=== PATIENT | female | born 1955 | race Caucasian/White ===

== ENCOUNTER 2022-11-18 09:04 | Emergency (ER) | payer OTHER ==
--- OUTSIDE RECORDS SUMMARY | 2022-11-18 09:09 | XMS REPORT | Continuity of Care Document ---
:1955 Author Organization [facility] t Address [address] [address] [place] [address] Care Team Providers Name Role Phone Pa Linares MD Primary Care Physician SUSAN CHAMBERS Attending Clinician Unavailable MONTEZ BURGER Attending Clinician Unavailable TITO DOE Attending Clinician Unavailable DARLINE PADRON Attending Clinician Unavailable PA LINARES Attending Clinician Unavailable RAFAT ORTIZ Attending Clinician Unavailable KELI WYATT Attending Clinician Unavailable JAYNE LOVE Attending Clinician Unavailable Kemal Hassan DO Attending Clinician HUMAIRA RAMSEY Attending Clinician Unavailable Gisselle Guerra MD Attending Clinician Chery Santa MD Attending Clinician [id number] Attending Clinician Unavailable Humaira Ramsey MD Attending Clinician [phone] [id number] Attending Clinician Unavailable Darline Padron MD Attending Clinician Sun Arana MD Attending Clinician SAMIR AVILA Attending Clinician Unavailable JEFF SANTIAGO Attending Clinician Unavailable Nurse, Adc Pob Immunization Attending Clinician Unavailable Jeff Santiago DO Attending Clinician [id number] Attending Clinician Unavailable Ric Gracia MD Attending Clinician RIC GRACIA Attending Clinician Unavailable Payers Payer Name Policy Type Policy Number Effective Date Expiration Date Dorothy MENDOZA O 7 [id number] 2020 00:00:00 Problems Condition Condition Condition Status Onset Resolution Last Treating Co mments Source Name Details Category Date Date Treatment Clinician Date Hyperchole Hyperchole Disease Active Wale cornelius sterolemia sterolemia 5-23 Se ybold 00:00: - 00 Externa l Osteoporos Osteoporos Disease Active Wale shields is is 4-09 Seybold 00:00: - 00 Externa l Non-allerg Non-allerg Disease Active Wale galdamezkeshia ic ic 3-27 Seybold rhinitis rhinitis 00:00: - 00 Externa l Moderate Moderate Disease Active Dillon y persistent persistent 3-27 Se ybold asthma asthma 00:00: - without without 00 Externa complicati complicati l on on Nasal Nasal Disease Active Octavia polyp polyp 3-27 Seybold 00:00: - 00 Externa l Allergies, Adverse Reactions, Alerts Allergy Allergy Status Severity Reaction(s) Onset Inactive Treating Comm ents Source Name Type Date Date Clinician Penicill Propensi Active Other - See 2019-07 Childhoo d [facility] ins ty to comments 07-22 allergy ity of adverse 00:00: [place] reaction 00 Medical s Branch PENICILL Drug Active Other-Cmnt 2019-07 Univ ers INS Class 1- ity of 00:00: [place] 00 Medical Branch Penicill Propensi Active Childhood 2013-07 . Idris sey ins ty to Reaction 0-02 Seybold adverse 00:00: - reaction 00 Externa s l Penicill Propensi Active Childhood 2013-07 . Idris sey ins ty to Reaction 0-02 Seybold adverse 00:00: reaction 00 s NO KNOWN Drug Active Univers ALLERGIE Class ity of S [facility] Social History Social Habit Start Date Stop Date Quantity Comments Source Exposure to Not sure Octavia ortega SARS-CoV-2 (event) Alcohol intake 2022-07-29 2022-07-29 Current Octavia Khan bold - 00:00:00 00:00:00 non-drinker of External alcohol (finding) Tobacco use and 2017-05-30 2017-05-30 Smokeless tobacco Ke lsey Seybold - exposure 00:00:00 00:00:00 non-user External Sex [birth year] [facility] 00:00:00 00:00:00 [facility] Smoking Status Start Date Stop Date Source Never smoked tobacco Octavia Rendon old - External Medications Ordered Filled Start Stop Current Ordering Indication Dosage Frequency Signature Comments Components Source Medication Medication Date Date Medication? Clinician (SIG) Name Name Probiotic Yes Take by Dillon y Product 1-16 mouth Seybold (PROBIOTIC 08:21: - OR) 28 Externa l Calcium 250 Yes 2{tbl} Take 2 Ke lsey MG oral Cap 1-16 tablets by Se ybold 08:15: mouth - 17 daily Externa l Ascorbic Yes 2{tbl} Take 2 Kelse y Acid 1-16 tablets by Seybold (VITAMIN C 08:15: mouth - OR) 17 daily Externa l Multiple Yes 1{tbl} Take 1 Kelse y Vitamins-Mi 1-16 tablet by Erin bold nerals 08:15: mouth - (MULTIVITAM 17 daily Externa IN ADULT l OR) Pearson-3 Yes Take by Octavia Fatty Acids 1-16 mouth Seybold (OMEGA-3 08:15: - FISH OIL 17 Externa OR) l Zinc 30 MG Yes Take by Cecilia ey oral 1-16 mouth Seybold Capsule 08:15: - 17 Externa l Budesonide- Yes [id number] 2{puff} Inhale 2 Octavia Formoterol 1-16 puffs into Erin bold Fumarate 00:00: the lungs - (Symbicort) 00 2 times Exter na 80-4.5 daily l MCG/ACT inhalation Aerosol Calcium 250 Yes 2{tbl} Take 2 Ke lsey MG oral Cap 1-12 tablets by Se ybold 10:57: mouth - 55 daily Externa l Ascorbic 0 Yes 2{tbl} Take 2 Kelse y Acid 1-12 tablets by Seybold (VITAMIN C 10:57: mouth - OR) 55 daily Externa l Multiple Yes 1{tbl} Take 1 Kelse y Vitamins-Mi 1-12 tablet by Erin bold nerals 10:57: mouth - (MULTIVITAM 55 daily Externa IN ADULT l OR) Pearson-3 Yes Take by Octavia Fatty Acids 1-12 mouth Seybold (OMEGA-3 10:57: - FISH OIL 55 Externa OR) l Zinc 30 MG Yes Take by Cecilia ey oral 1-12 mouth Seybold Capsule 10:57: - 55 Externa l predniSONE Yes 3 daily Cecilia ey (DELTASONE) 1-12 for 4 Seybold 10 MG oral 00:00: days, 2 - tablet 00 daily for Externa 4 days, 1 l daily for 4 days Clindamycin Yes 300mg Take 1 Idris sey HCl 300 MG 1-12 capsule Seybol d oral 00:00: (300 mg - Capsule 00 total) by Externa mouth 3 l times daily predniSONE Yes 3 daily Cecilia ey (DELTASONE) 1-12 for 4 Seybold 10 MG oral 00:00: days, 2 - tablet 00 daily for Externa 4 days, 1 l daily for 4 days Clindamycin Yes 300mg Take 1 Idris sey HCl 300 MG 1-12 capsule Seybol d oral 00:00: (300 mg - Capsule 00 total) by Externa mouth 3 l times daily ALBUTEROL 2021-07 Yes [id number] 2{puff} Q.25D INHALE 2 Octavia HFA 108 (90 2-31 PUFFS INTO Se ybold Base) 00:00: THE LUNGS - MCG/ACT IN 00 EVERY 6 Meat Packager a AERS HOURS l NEEDED FOR WHEEZING OR SHORTNESS OF BREATH ALBUTEROL 2021-07 Yes [id number] 2{puff} Q.25D INHALE 2 Octavia HFA 108 (90 2-31 PUFFS INTO Se ybold Base) 00:00: THE LUNGS - MCG/ACT IN 00 EVERY 6 Meat Packager a AERS HOURS l NEEDED FOR WHEEZING OR SHORTNESS OF BREATH Azelastine 2021-07 Yes [id number] 2{spray USE 2 Octavia HCl 0.1 % 08-11 1 } SPRAYS IN Seybo ld nasal 00:00: EACH - Solution 00 NOSTRIL AT Exter na BEDTIME l Azelastine 2021-07 Yes [id number] 2{spray USE 2 Octavia HCl 0.1 % 08-11 } SPRAYS IN Seybo ld nasal 00:00: EACH - Solution 00 NOSTRIL AT Exter na BEDTIME l Alendronate Yes [id number] 70mg Take 1 Octavia Sodium 70 8-18 tablet (70 Seyb old MG oral 00:00: mg total) - Tablet 00 by mouth Externa once a l week Meclizine Yes [id number] 25mg Q.[id number] Take 1 Octavia HCl 25 MG 8-18 [id number] tablet (25 Seybold oral Tablet 00:00: 3D mg total) - 00 by mouth Externa every 8 l hours as needed for nausea (motion sickness) Alendronate Yes [id number] 70mg Take 1 Octavia Sodium 70 8-18 tablet (70 Seyb old MG oral 00:00: mg total) - Tablet 00 by mouth Externa once a l week Meclizine Yes [id number] 25mg Q.[id number] Take 1 Octavia HCl 25 MG 8-18 [id number] tablet (25 Seybold oral Tablet 00:00: 3D mg total) - 00 by mouth Externa every 8 l hours as needed for nausea (motion sickness) Dextrometho 2022- No [id number] 1{tbl} Take 1 Octavia rphan-guaiF 7-07 14-12 tablet by Se burgos ENesin 00:00: 00:00 mouth 2 - (Mucinex DM 00 :00 times Externa Maximum daily l Strength) 60-1200 MG oral Tablet 12 Hour Sustained Release Calcium 250 Yes 2{tbl} Take 2 Ke lsey MG oral Cap 5-23 tablets by Se burgos 15:50: mouth 52 daily Ascorbic Yes 2{tbl} Take 2 Kelse y Acid 5-23 tablets by Elliott (VITAMIN C 15:50: mouth OR) 52 daily Multiple Yes 1{tbl} Take 1 Kelse y Vitamins-Mi 5-23 tablet by Erin burnett nerals 15:50: mouth (MULTIVITAM 52 daily IN ADULT OR) Pearson-3 Yes Take by Octavia Fatty Acids 5-23 mouth Seybold (OMEGA-3 15:50: FISH OIL 52 OR) Multiple 2021-2021- No Take by Kelse y Vitamins-Mi 5-23 05-23 mouth Seybol d nerals 15:50: 00:00 (ZINC OR) 36 :00 Azelastine Yes [id number] 2{spray Use 2 Octavia HCl 0.1 % 12-03 1 } sprays in Seybo ld nasal 00:00: each Solution 00 nostril at bedtime Calcium 250 Yes 2{tbl} Take 2 Ke lsey MG oral Cap 5-06 tablets by Se ybold 10:56: mouth 24 daily Ascorbic Yes 2{tbl} Take 2 Kelse y Acid 5-06 tablets by Seybold (VITAMIN C 10:56: mouth OR) 24 daily Multiple Yes 1{tbl} Take 1 Kelse y Vitamins-Mi 5-06 tablet by Sey bold nerals 10:56: mouth (MULTIVITAM 24 daily IN ADULT OR) Multiple Yes Take by Octavia Vitamins-Mi 5-06 mouth Seybold nerals 10:56: (ZINC OR) 24 Pearson-3 Yes Take by Octavia Fatty Acids 5-06 mouth Seybold (OMEGA-3 10:56: FISH OIL 24 OR) Calcium 250 Yes 2{tbl} Take 2 Ke lsey MG oral Cap 4-22 tablets by Se ybold 10:47: mouth 57 daily Ascorbic Yes 2{tbl} Take 2 Kelse y Acid 4-22 tablets by Seybold (VITAMIN C 10:47: mouth OR) 57 daily Multiple Yes 1{tbl} Take 1 Kelse y Vitamins-Mi 4-22 tablet by Sey bold nerals 10:47: mouth (MULTIVITAM 57 daily IN ADULT OR) Multiple Yes Take by Octavia Vitamins-Mi 4-22 mouth Seybold nerals 10:47: (ZINC OR) 57 Pearson-3 Yes Take by Octavia Fatty Acids 4-22 mouth Seybold (OMEGA-3 10:47: FISH OIL 57 OR) Budesonide- Yes [id number] 2{puff} Inhale 2 Octavia Formoterol 1-25 puffs into Sey bold Fumarate 00:00: the lungs (Symbicort) 00 2 times 80-4.5 daily MCG/ACT inhalation Aerosol Budesonide- 2-0 Yes [id number] 2{puff} Inhale 2 Octavia Formoterol 1-25 puffs into Sey bold Fumarate 00:00: the lungs (Symbicort) 00 2 times 80-4.5 daily MCG/ACT inhalation Aerosol Budesonide- 2021-0 Yes [id number] 2{puff} Inhale 2 Octavia Formoterol 1-25 puffs into Sey bold Fumarate 00:00: the lungs (Symbicort) 00 2 times 80-4.5 daily MCG/ACT inhalation Aerosol Budesonide- 2021-0 Yes [id number] 2{puff} Inhale 2 Octavia Formoterol 1-25 puffs into Sey bold Fumarate 00:00: the lungs - (Symbicort) 00 2 times Exter na 80-4.5 daily l MCG/ACT inhalation Aerosol Budesonide- 2021-0 3- No [id number] 2{puff} Inhale 2 Octavia Formoterol 1-25 01-16 puffs into Se ybold Fumarate 00:00: 00:00 the lungs - (Symbicort) 00 :00 2 times Exter na 80-4.5 daily l MCG/ACT inhalation Aerosol guaiFENesin 2021-0 Yes [id number] 5mL Q.[id number] Take 5 mL Octavia -Codeine 1-24 [id number] by mouth 3 Seybold (Virtussin 00:00: 3D times A/C) 100-10 00 daily as MG/5ML oral needed for Syrup cough (not to mix with any other potentiall y sedating substance) guaiFENesin 2021-0 Yes [id number] 5mL Q.81611032 Take 5 mL Octavia -Codeine 1-24 [id number] by mouth 3 Seybold (Virtussin 00:00: 3D times A/C) 100-10 00 daily as MG/5ML oral needed for Syrup cough (not to mix with any other potentiall y sedating substance) guaiFENesin 2021-0 Yes [id number] 5mL Q.[id number] Take 5 mL Octavia -Codeine -24 [id number] by mouth 3 Seybold (Virtussin 00:00: 3D times A/C) 100-10 00 daily as MG/5ML oral needed for Syrup cough (not to mix with any other potentiall y sedating substance) guaiFENesin 2021- No [id number] 5mL Q.06644992 Take 5 mL Octavia -Codeine 08-06 [id number] by mouth 3 Seybold (Virtussin 00:00: 00:00 3D times A/C) 100-10 00 :00 daily as MG/5ML oral needed for Syrup cough (not to mix with any other potentiall y sedating substance) Azithromyci 2021- No [id number] Take 2 Octavia n 250 MG 08-06-30 tablets by Seyb old oral Tablet 00:00: 05:59 mouth on 00 :00 day 1 then 1 tablet by mouth daily for 4 days thereafter . Calcium 250 2020-07 Yes 2{tbl} Take 2 Ke lsey MG oral Cap 2-16 tablets by Se ybold 12:53: mouth 48 daily Ascorbic 2020-07 Yes 2{tbl} Take 2 Kelse y Acid 2-16 tablets by Seybold (VITAMIN C 12:53: mouth OR) 48 daily Multiple 2020-07 Yes 1{tbl} Take 1 Kelse y Vitamins-Mi 2-16 tablet by Sey bold nerals 12:53: mouth (MULTIVITAM 48 daily IN ADULT OR) Multiple 2020-07 Yes Take by Octavia Vitamins-Mi 2-16 mouth Seybold nerals 12:53: (ZINC OR) 48 Calcium 250 2020-07 Yes 2{tbl} Take 2 Ke lsey MG oral Cap 2-16 tablets by Se ybold 12:53: mouth 48 daily Ascorbic 2020-07 Yes 2{tbl} Take 2 Kelse y Acid 2-16 tablets by Seybold (VITAMIN C 12:53: mouth OR) 48 daily Multiple 2020-07 Yes 1{tbl} Take 1 Kelse y Vitamins-Mi 2-16 tablet by Sey bold nerals 12:53: mouth (MULTIVITAM 48 daily IN ADULT OR) Multiple 2020-07 Yes Take by Octavia Vitamins-Mi 2-16 mouth Seybold nerals 12:53: (ZINC OR) 48 Azelastine 2020-07 Yes USE 2 Octavia HCl 0.1 % 2-02 SPRAYS IN Seybo ld nasal 00:00: EACH Solution 00 NOSTRIL EVERY NIGHT AT BEDTIME Azelastine 2020-07 Yes USE 2 Octavia HCl 0.1 % 2-02 SPRAYS IN Seybo ld nasal 00:00: EACH Solution 00 NOSTRIL EVERY NIGHT AT BEDTIME Azelastine 2020-07 Yes USE 2 Octavia HCl 0.1 % 2-02 SPRAYS IN Seybo ld nasal 00:00: EACH Solution 00 NOSTRIL EVERY NIGHT AT BEDTIME Azelastine 2020-07 Yes USE 2 Octavia HCl 0.1 % 2-02 SPRAYS IN Seybo ld nasal 00:00: EACH Solution 00 NOSTRIL EVERY NIGHT AT BEDTIME Azelastine 2020-07- No USE 2 Kelse y HCl 0.1 % 2-02 05-23 SPRAYS IN Seyb old nasal 00:00: 00:00 EACH Solution 00 :00 NOSTRIL EVERY NIGHT AT BEDTIME Alendronate 2020-07 Yes [id number] 70mg Take 1 Octavia Sodium 70 1-12 tablet (70 Seyb old MG oral 00:00: mg total) Tablet 00 by mouth once a week Albuterol 2020-07 Yes [id number] 2{puff} Q.25D Inhale 2 Octavia HFA 1-12 puffs into Seybold (VENTOLIN 00:00: the lungs HFA) 108 00 every 6 (90 Base) hours as MCG/ACT IN needed for AERS wheezing or shortness of breath Alendronate 2020-07 Yes [id number] 70mg Take 1 Octavia Sodium 70 1-12 tablet (70 Seyb old MG oral 00:00: mg total) Tablet 00 by mouth once a week Albuterol 2020-07 Yes [id number] 2{puff} Q.25D Inhale 2 Octavia HFA 1-12 puffs into Seybold (VENTOLIN 00:00: the lungs HFA) 108 00 every 6 (90 Base) hours as MCG/ACT IN needed for AERS wheezing or shortness of breath Alendronate 2020-07 Yes [id number] 70mg Take 1 Octavia Sodium 70 1-12 tablet (70 Seyb old MG oral 00:00: mg total) Tablet 00 by mouth once a week Albuterol 2020-07 Yes [id number] 2{puff} Q6H Inhale 2 Octavia HFA 1-12 puffs into Seybold (VENTOLIN 00:00: the lungs HFA) 108 00 every 6 (90 Base) hours as MCG/ACT IN needed for AERS wheezing or shortness of breath Fluticasone 2020-07 Yes [id number] 1{puff} Inhale 1 Octavia -Salmeterol 1-12 puff into Sey bold (Advair 00:00: the lungs Diskus) 00 2 times 250-50 daily MCG/DOSE inhalation AEROSOL POWDER, BREATH ACTIVATED Alendronate 2020-07 Yes [id number] 70mg Take 1 Octavia Sodium 70 1-12 tablet (70 Seyb old MG oral 00:00: mg total) Tablet 00 by mouth once a week Albuterol 2020-07 Yes [id number] 2{puff} Q6H Inhale 2 Octavia HFA 1-12 puffs into Seybold (VENTOLIN 00:00: the lungs HFA) 108 00 every 6 (90 Base) hours as MCG/ACT IN needed for AERS wheezing or shortness of breath Fluticasone 2020-07 Yes [id number] 1{puff} Inhale 1 Octavia -Salmeterol 1-12 puff into Sey bold (Advair 00:00: the lungs Diskus) 00 2 times 250-50 daily MCG/DOSE inhalation AEROSOL POWDER, BREATH ACTIVATED Alendronate 2020-07 Yes [id number] 70mg Take 1 Octavia Sodium 70 1-12 tablet (70 Seyb old MG oral 00:00: mg total) Tablet 00 by mouth once a week Albuterol 2020-07 Yes [id number] 2{puff} Q.25D Inhale 2 Octavia HFA 1-12 puffs into Seybold (VENTOLIN 00:00: the lungs HFA) 108 00 every 6 (90 Base) hours as MCG/ACT IN needed for AERS wheezing or shortness of breath Pearson-3 Yes Take by Octavia Fatty Acids 4-09 mouth Seybold (OMEGA-3 10:03: FISH OIL 47 OR) Pearson-3 Yes Take by Octavia Fatty Acids 4-09 mouth Seybold (OMEGA-3 10:03: FISH OIL 47 OR) Tretinoin Yes [id number] Apply pea Octavia 0.025 % 1-25 sized Seybold apply 00:00: amount to externally 00 face qhs Cream for skin texture. (For cosmesis) Tretinoin Yes [id number] Apply pea Octavia 0.025 % 1-25 sized Seybold apply 00:00: amount to externally 00 face qhs Cream for skin texture. (For cosmesis) Tretinoin Yes [id number] Apply pea Octavia 0.025 % 1-25 sized Seybold apply 00:00: amount to - externally 00 face qhs Exter na Cream for skin l texture. (For cosmesis) Tretinoin Yes [id number] Apply pea Octavia 0.025 % 1-25 sized Seybold apply 00:00: amount to externally 00 face qhs Cream for skin texture. (For cosmesis) Tretinoin Yes [id number] Apply pea Octavia 0.025 % 1-25 sized Seybold apply 00:00: amount to - externally 00 face qhs Exter na Cream for skin l texture. (For cosmesis) Tretinoin Yes [id number] Apply pea Octavia 0.025 % 1-25 sized Seybold apply 00:00: amount to externally 00 face qhs Cream for skin texture. (For cosmesis) Tretinoin Yes [id number] Apply pea Octavia 0.025 % 1-25 sized Seybold apply 00:00: amount to externally 00 face qhs Cream for skin texture. (For cosmesis) alendronate 2019-07 Yes [id number] TAKE 1 Univers 70 mg 1-25 TABLET BY ity of tablet 00:00: MOUTH [place] 00 EVERY WEEK [facility] Branch alendronate 2019-07 Yes [id number] TAKE 1 Univers 70 mg 1-25 TABLET BY ity of tablet 00:00: MOUTH [place] 00 EVERY WEEK [facility] Branch alendronate 2019-07 Yes [id number] TAKE 1 Univers 70 mg 1-25 TABLET BY ity of tablet 00:00: MOUTH [place] 00 EVERY WEEK [facility] Branch ASCORBIC 2019-07 Yes 2{tbl} Take 2 Unive rs ACID, 1-09 tablets by ity of VITAMIN C, 16:15: mouth. [address] Calcium 2019-07 Yes 2{tbl} Take 2 Univer s Carb-Vit 1-09 tablets by ity o f D3-Magnesiu 16:15: mouth. [place] hermosillo [address] [place] [address] [id number] Branch mg-unit-mg Cap Garlic 500 2019-07 Yes 1{capsu Take 1 Un ben mg Cap 1-09 le} capsule by ity of 16:15: mouth. [address] ASCORBIC 2019-07 Yes 2{tbl} Take 2 Unive rs ACID, 1-09 tablets by ity of VITAMIN C, 16:15: mouth. [address] Calcium 2019-07 Yes 2{tbl} Take 2 Univer s Carb-Vit 1-09 tablets by ity o f D3-Magnesiu 16:15: mouth. [place] hermosillo [address] [place] [address] [id number] Branch mg-unit-mg Cap Garlic 500 2019-07 Yes 1{capsu Take 1 Un ben mg Cap 1-09 le} capsule by ity of 16:15: mouth. [address] ASCORBIC 2019-07 Yes 2{tbl} Take 2 Unive rs ACID, 1-09 tablets by ity of VITAMIN C, 10:15: mouth. [address] Calcium 2019-07 Yes 2{tbl} Take 2 Univer s Carb-Vit 1-09 tablets by ity o f D3-Magnesiu 10:15: mouth. [place] hermosillo [address] [place] [address] [id number] Branch mg-unit-mg Cap Garlic 500 2019-07 Yes 1{capsu Take 1 Un ben mg Cap 1-09 le} capsule by ity of 10:15: mouth. [address] Branch ADVAIR 2019-07 Yes INL 1 PUFF Unive rs DISKUS 0-12 ITL BID ity of 250-50 00:00: [place] mcg/dose 00 Medical inhalation Branch disk ADVAIR 2019-07 Yes INL 1 PUFF Unive rs DISKUS 0-12 ITL BID ity of 250-50 00:00: [place] mcg/dose 00 Medical inhalation Branch disk ADVAIR 2019-07 Yes INL 1 PUFF Unive rs DISKUS 0-12 ITL BID ity of 250-50 00:00: [place] mcg/dose 00 Medical inhalation Branch disk azelastine 2020-0 Yes USE 2 Univer s 137 mcg 9-28 SPRAYS IN ity of (0.1 %) 00:00: EACH [place] nasal spray 00 NOSTRIL Medic al EVERY Branch NIGHT AT BEDTIME azelastine 2020-0 Yes U 2 SPRAYS U nivers 137 mcg 9-28 IEN QHS ity of (0.1 %) 00:00: [place] nasal spray 00 Medical Branch azelastine 2020-0 Yes USE 2 Univer s 137 mcg 9-28 SPRAYS IN ity of (0.1 %) 00:00: EACH [place] nasal spray 00 NOSTRIL Medic al EVERY Branch NIGHT AT BEDTIME azelastine 2020-0 Yes U 2 SPRAYS U nivers 137 mcg 9-28 IEN QHS ity of (0.1 %) 00:00: [place] nasal spray Medical Branch azelastine 2020-0 Yes USE 2 Univer s 137 mcg 9-28 SPRAYS IN ity of (0.1 %) 00:00: EACH [place] nasal spray 00 NOSTRIL Medic al EVERY Branch NIGHT AT BEDTIME azelastine 2020-0 Yes U 2 SPRAYS U nivers 137 mcg 9-28 IEN QHS ity of (0.1 %) 00:00: [place] nasal spray Medical Branch alendronate 2020-0 Yes TK 1 T PO U nivers 70 mg 9- ONCE A ity of tablet 00:00: WEEK [place] [facility] Branch alendronate 2020-0 Yes TK 1 T PO U nivers 70 mg 9-02 ONCE A ity of tablet 00:00: WEEK [place] [facility] alendronate 2020-0 Yes TK 1 T PO U nivers 70 mg 9-02 ONCE A ity of tablet 00:00: WEEK [place] [facility] Branch albuterol 2018-07 Yes 1{puff} Inhale 1-2 Univers 90 2-19 Puffs. ity of mcg/actuati 00:00: [place] on inhaler Medical Branch albuterol 2018-07 Yes 1{puff} Inhale 1-2 Univers 90 2-19 Puffs. ity of mcg/actuati 00:00: [place] on inhaler Medical Branch albuterol 2018-07 Yes 1{puff} Inhale 1-2 Univers 90 2-19 Puffs. ity of mcg/actuati 00:00: [place] on inhaler 00 Medical Branch fluticasone 2018-07 Yes 1{puff} Inhale 1 Univers propion-elisha 2-04 Puff. ity of meteroL 00:00: [place] 250-50 00 Medical mcg/dose Branch inhalation disk fluticasone 2018-07 Yes 1{puff} Inhale 1 Univers propion-elisha 2-04 Puff. ity of meteroL 00:00: [place] 250-50 00 Medical mcg/dose Branch inhalation disk fluticasone 2018-07 Yes 1{puff} Inhale 1 Univers propion-elisha 2-04 Puff. ity of meteroL 00:00: [place] 250-50 00 Medical mcg/dose Branch inhalation disk FLUTICASONE 2015-07 Yes 2 sprays Ke lsey PROPIONATE, 1-14 each Seybold NASAL, 00:00: nostril (FLONASE) 00 qday 50 MCG/ACT nasal Suspension Loratadine 2015-07 Yes 10mg Take 1 Kelse y 10 MG oral 1-14 capsule by Sey bold Cap 00:00: mouth 00 daily FLUTICASONE 2015-07 Yes 2 sprays Ke lsey PROPIONATE, 1-14 each Seybold NASAL, 00:00: nostril (FLONASE) 00 qday 50 MCG/ACT nasal Suspension Loratadine 2015-07 Yes 10mg Take 1 Kelse y 10 MG oral 1-14 capsule by Sey bold Cap 00:00: mouth 00 daily FLUTICASONE 2015-07 Yes 2 sprays Ke lsey PROPIONATE, 1-14 each Seybold NASAL, 00:00: nostril (FLONASE) 00 qday 50 MCG/ACT nasal Suspension Loratadine 2015-07 Yes 10mg Take 1 Kelse y 10 MG oral 1-14 capsule by Sey bold Cap 00:00: mouth 00 daily FLUTICASONE 2015-07 Yes 2 sprays Ke lsey PROPIONATE, 1-14 each Seybold NASAL, 00:00: nostril - (FLONASE) 00 qday Externa 50 MCG/ACT l nasal Suspension Loratadine 2015-07 Yes 10mg Take 1 Kelse y 10 MG oral 1-14 capsule by Sey bold Cap 00:00: mouth - 00 daily Externa l FLUTICASONE 2015-07 Yes 2 sprays Ke lsey PROPIONATE, 1-14 each Seybold NASAL, 00:00: nostril - (FLONASE) 00 qday Externa 50 MCG/ACT l nasal Suspension Loratadine 2015-07 Yes 10mg Take 1 Kelse y 10 MG oral 1-14 capsule by Sey bold Cap 00:00: mouth - 00 daily Externa l FLUTICASONE 2015-07 Yes 2 sprays Ke lsey PROPIONATE, 1-14 each Seybold NASAL, 00:00: nostril (FLONASE) 00 qday 50 MCG/ACT nasal Suspension Loratadine 2015-07 Yes 10mg Take 1 Kelse y 10 MG oral 1-14 capsule by Sey bold Cap 00:00: mouth 00 daily FLUTICASONE 2015-07 Yes 2 sprays Ke lsey PROPIONATE, 1-14 each Seybold NASAL, 00:00: nostril (FLONASE) 00 qday 50 MCG/ACT nasal Suspension Loratadine 2015-07 Yes 10mg Take 1 Kelse y 10 MG oral 1-14 capsule by Sey bold Cap 00:00: mouth 00 daily Immunizations Ordered Immunization Filled Immunization Date Status Commen ts Source Name Name Influenza Virus 2022-04-11 Completed Octavia Huang ybold - Vaccine, 00:00:00 External Quadrivalent, High Dose, Age 65 And Up Influenza Virus 2022-04-11 Completed Octavia Huang ybold - Vaccine, 00:00:00 External Quadrivalent, High Dose, Age 65 And Up SARS-COV-2 COVID-19 2021-05-24 Completed Unive rsity of MODERNA BOOSTER 00:00:00 [facility] VACCINE Branch Influenza Virus 2021-04-13 Completed Octavia Huang ybold Vaccine, 00:00:00 Quadrivalent, High Dose, Age 65 And Up Influenza Virus 2021-04-13 Completed Octavia Huang ybold Vaccine, 00:00:00 Quadrivalent, High Dose, Age 65 And Up Influenza Virus 2021-04-13 Completed Octavia Huang ybold Vaccine, 00:00:00 Quadrivalent, High Dose, Age 65 And Up Influenza Virus 2021-04-13 Completed Octavia Huang ybold - Vaccine, 00:00:00 External Quadrivalent, High Dose, Age 65 And Up Influenza Virus 2021-04-13 Completed Octavia Se ybold - Vaccine, 00:00:00 External Quadrivalent, High Dose, Age 65 And Up Influenza Virus 2021-04-13 Completed Octavia Se ybold Vaccine, 00:00:00 Quadrivalent, High Dose, Age 65 And Up Influenza Virus 2021-04-13 Completed Octavia Se ybold Vaccine, 00:00:00 Quadrivalent, High Dose, Age 65 And Up Pneumococcal Vaccine, 2020-10-20 Completed Idris sey Seybold Polysaccharide 00:00:00 Pneumococcal Vaccine, 2020-10-20 Completed Idris sey Seybold Polysaccharide 00:00:00 Pneumococcal Vaccine, 2020-10-20 Completed Idris sey Seybold Polysaccharide 00:00:00 Pneumococcal Vaccine, 2020-10-20 Completed Idris sey Seybold - Polysaccharide 00:00:00 External Pneumococcal Vaccine, 2020-10-20 Completed Idris sey Seybold - Polysaccharide 00:00:00 External Pneumococcal Vaccine, 2020-10-20 Completed Idris sey Seybold Polysaccharide 00:00:00 Pneumococcal Vaccine, 2020-10-20 Completed Idris sey Seybold Polysaccharide 00:00:00 Covid-19 Vaccine 2020-08-30 Completed Octavia pagan Moderna (Spikevax), 00:00:00 Mrna-lnp, Riki Protein, Pf Covid-19 Vaccine 2020-08-30 Completed Octavia pagan Moderna (Spikevax), 00:00:00 Mrna-lnp, Riki Protein, Pf Covid-19 Vaccine 2020-08-30 Completed Octavia pagan Moderna (Spikevax), 00:00:00 Mrna-lnp, Riki Protein, Pf Covid-19 Vaccine 2020-08-30 Completed Octavia pagan - Moderna (Spikevax), 00:00:00 Exter nal Mrna-lnp, Riki Protein, Pf Covid-19 Vaccine 2020-08-30 Completed Octavia pagan - Moderna (Spikevax), 00:00:00 Exter nal Mrna-lnp, Riki Protein, Pf Covid-19 Vaccine 2020-08-30 Completed Octavia pagan (Moderna), Mrna-lnp, 00:00:00 Riki Protein, Pf, 100 Mcg/0.5ml,IM Covid-19 Vaccine 2020-08-30 Completed Octavia richmondbold (Moderna), Mrna-lnp, 00:00:00 Riki Protein, Pf, 100 Mcg/0.5ml,IM Covid-19 Vaccine 2020 Completed Octavia richmondbold Moderna (Spikevax), 00:00:00 Mrna-lnp, Riki Protein, Pf Covid-19 Vaccine 2020 Completed Octavia richmonddeborahld Moderna (Spikevax), 00:00:00 Mrna-lnp, Riki Protein, Pf Covid-19 Vaccine 2020 Completed Octavia richmondbold Moderna (Spikevax), 00:00:00 Mrna-lnp, Riki Protein, Pf Covid-19 Vaccine 2020 Completed Octavia richmonddeborahld - Moderna (Spikevax), 00:00:00 Exter nal Mrna-lnp, Riki Protein, Pf Covid-19 Vaccine 2020 Completed Octavia richmondbold - Moderna (Spikevax), 00:00:00 Exter nal Mrna-lnp, Riki Protein, Pf Covid-19 Vaccine 2020 Completed Octavia richmondbold (Moderna), Mrna-lnp, 00:00:00 Riki Protein, Pf, 100 Mcg/0.5ml,IM Covid-19 Vaccine 2020 Completed Octavia richmondbold (Moderna), Mrna-lnp, 00:00:00 Riki Protein, Pf, 100 Mcg/0.5ml,IM Influenza Virus 2020-04-21 Completed Octavia Se ybold Vaccine, age 6 months 00:00:00 and up Influenza Virus 2020-04-21 Completed Octavia Se ybold Vaccine, age 6 months 00:00:00 and up Influenza Virus 2020-04-21 Completed Octavia Se ybold Vaccine, age 6 months 00:00:00 and up Influenza Virus 2020-04-21 Completed Octavia Se ybold - Vaccine, age 6 months 00:00:00 Ext ernal and up Influenza Virus 2020-04-21 Completed Octavia Se ybold - Vaccine, age 6 months 00:00:00 Ext ernal and up Influenza Virus 2020-04-21 Completed [facility] Se ybold Vaccine, age 6 months 00:00:00 and up Influenza Virus 2020-04-21 Completed Octavia Se ybold Vaccine, age 6 months 00:00:00 and up Influenza Virus 2020-04-20 Completed [facility] Se ybold Vaccine, No Preserv, 00:00:00 age 6 months and up Influenza Virus 2020-04-20 Completed [facility] Se ybold Vaccine, No Preserv, 00:00:00 age 6 months and up Influenza Virus 2020-04-20 Completed [facility] Se ybold Vaccine, No Preserv, 00:00:00 age 6 months and up Influenza Virus 2020-04-20 Completed [facility] Se ybold - Vaccine, No Preserv, 00:00:00 Exte rnal age 6 months and up Influenza Virus 2020-04-20 Completed Octavia Se ybold - Vaccine, No Preserv, 00:00:00 Exte rnal age 6 months and up Influenza Virus 2020-04-20 Completed [facility] Se ybold Vaccine, No Preserv, 00:00:00 age 6 months and up Influenza Virus 2020-04-20 Completed [facility] Se ybold Vaccine, No Preserv, 00:00:00 age 6 months and up Influenza Virus 2020-04-20 Completed [facility] Vaccine Quad .5 mL IM 00:00:00 [facility] 6+ MO Branch Influenza Virus 2020-04-20 Completed [facility] Vaccine Quad .5 mL IM 00:00:00 [facility] 6+ MO Branch Influenza Virus 2020-04-20 Completed [facility] Vaccine Quad .5 mL IM 00:00:00 [facility] 6+ MO Branch Influenza Virus 2019-05-07 Completed [facility] Se ybold Vaccine, age 6 months 00:00:00 and up Influenza Virus 2019-05-07 Completed [facility] Se ybold Vaccine, age 6 months 00:00:00 and up Influenza Virus 2019-05-07 Completed [facility] Se ybold Vaccine, age 6 months 00:00:00 and up Influenza Virus 2019-05-07 Completed Oct[facility] Se ybold - Vaccine, age 6 months 00:00:00 Ext ernal and up Influenza Virus 2019-05-07 Completed Oct[facility] Se ybold - Vaccine, age 6 months 00:00:00 Ext ernal and up Influenza Virus 2019-05-07 Completed [facility] Se ybold Vaccine, age 6 months 00:00:00 and up Influenza Virus 2019-05-07 Completed Oct[facility] Se ybold Vaccine, age 6 months 00:00:00 and up Influenza Virus 2019-05-07 Completed [facility] Vaccine Quad IM 00:00:00 [place] [facility] Multi-dose 6+ MO Branch Influenza Virus 2019-05-07 Completed [facility] Vaccine Quad IM 00:00:00 [place] [facility] Multi-dose 6+ MO Branch Influenza Virus 2019-05-07 Completed [facility] Vaccine Quad IM 00:00:00 [place] [facility] Multi-dose 6+ MO Branch Shingles IM 2018-12-17 Completed Octavia Seybol d (Shingrix) 00:00:00 Shingles IM 2018-12-17 Completed [facility] Seybol d (Shingrix) 00:00:00 Shingles IM 2018-12-17 Completed [facility] Seybol d (Shingrix) 00:00:00 Shingles IM 2018-12-17 Completed Octavia Huangybol d - (Shingrix) 00:00:00 External Shingles IM 2018-12-17 Completed Octavia Huangybol d - (Shingrix) 00:00:00 External Shingles IM 2018-12-17 Completed [facility] Seybol d (Shingrix) 00:00:00 Shingles IM 2018-12-17 Completed Octavia Huangybol d (Shingrix) 00:00:00 Zoster Vaccine 2018-12-17 Completed [facility] Recombinant 00:00:00 [facility] Zoster Vaccine 2018-12-17 Completed [facility] Recombinant 00:00:00 [facility] Zoster Vaccine 2018-12-17 Completed [facility] Recombinant 00:00:00 [facility] Shingles IM 2018-09-03 Completed [facility] Seybol d (Shingrix) 00:00:00 Shingles IM 2018-09-03 Completed [facility] Seybol d (Shingrix) 00:00:00 Shingles IM 2018-09-03 Completed [facility] Seybol d (Shingrix) 00:00:00 Shingles IM 2018-09-03 Completed [facility] Seybol d - (Shingrix) 00:00:00 External Shingles IM 2018-09-03 Completed [facility] Seybol d - (Shingrix) 00:00:00 External Shingles IM 2018-09-03 Completed [facility] Seybol d (Shingrix) 00:00:00 Shingles IM 2018-09-03 Completed Octavia Huangybol d (Shingrix) 00:00:00 Zoster Vaccine 2018-09-03 Completed [facility] Recombinant 00:00:00 [facility] Zoster Vaccine 2018-09-03 Completed [facility] Recombinant 00:00:00 [facility] Zoster Vaccine 2018-09-03 Completed [facility] Recombinant 00:00:00 [facility] Influenza Virus 2018-06-17 Completed [facility] Se ybold Vaccine, age 6 months 00:00:00 and up Influenza Virus 2018-06-17 Completed [facility] Se ybold Vaccine, age 6 months 00:00:00 and up Influenza Virus 2018-06-17 Completed [facility] Se ybold Vaccine, age 6 months 00:00:00 and up Influenza Virus 2018-06-17 Completed Oct[facility] Se ybold - Vaccine, age 6 months 00:00:00 Ext ernal and up Influenza Virus 2018-06-17 Completed [facility] Se ybold - Vaccine, age 6 months 00:00:00 Ext ernal and up Influenza Virus 2018-06-17 Completed [facility] Se ybold Vaccine, age 6 months 00:00:00 and up Influenza Virus 2018-06-17 Completed [facility] Se ybold Vaccine, age 6 months 00:00:00 and up Influenza Virus 2018-06-17 Completed [facility] Vaccine Quad IM 00:00:00 [facility] ical Multi-dose 6+ MO Branch Influenza Virus 2018-06-17 Completed [facility] of Vaccine Quad IM 00:00:00 [facility] ical Multi-dose 6+ MO Branch Influenza Virus 2018-06-17 Completed [facility] of Vaccine Quad IM 00:00:00 [facility] ical Multi-dose 6+ MO Branch Influenza Virus 2017-05-30 Completed [facility] Se ybold Vaccine, No Preserv, 00:00:00 age 6 months and up Influenza Virus 2017-05-30 Completed [facility] Se ybold Vaccine, No Preserv, 00:00:00 age 6 months and up Influenza Virus 2017-05-30 Completed [facility] Se ybold Vaccine, No Preserv, 00:00:00 age 6 months and up Influenza Virus 2017-05-30 Completed [facility] Se ybold - Vaccine, No Preserv, 00:00:00 Exte rnal age 6 months and up Influenza Virus 2017-05-30 Completed [facility] Se ybold - Vaccine, No Preserv, 00:00:00 Exte rnal age 6 months and up Influenza Virus 2017-05-30 Completed [facility] Se ybold Vaccine, No Preserv, 00:00:00 age 6 months and up Influenza Virus 2017-05-30 Completed [facility] Se ybold Vaccine, No Preserv, 00:00:00 age 6 months and up Influenza Virus 2017-05-30 Completed [facility]it [facility] of Vaccine Quad IM 3+ 00:00:00 [facility] Influenza Virus 2017-05-30 Completed Universit y of Vaccine Quad IM 3+ 00:00:00 [facility] Influenza Virus 2017-05-30 Completed [facility]it [facility] of Vaccine Quad IM 3+ 00:00:00 [facility] Shingles SQ 2016-04-26 Completed Octavia Seybol d (Zostavax) 00:00:00 Pneumococcal Vaccine, 2016-04-26 Completed Idris sey Seybold Polysaccharide 00:00:00 Influenza Virus 2016-04-26 Completed Octavia Se ybold Vaccine, age 6 months 00:00:00 and up Shingles SQ 2016-04-26 Completed Octavia Seybol d (Zostavax) 00:00:00 Pneumococcal Vaccine, 2016-04-26 Completed Idris sey Seybold Polysaccharide 00:00:00 Influenza Virus 2016-04-26 Completed Octavia Se ybold Vaccine, age 6 months 00:00:00 and up Shingles SQ 2016-04-26 Completed Octavia Seybol d (Zostavax) 00:00:00 Pneumococcal Vaccine, 2016-04-26 Completed Idris sey Seybold Polysaccharide 00:00:00 Influenza Virus 2016-04-26 Completed Octavia Se ybold Vaccine, age 6 months 00:00:00 and up Shingles SQ 2016-04-26 Completed Octavia Seybol d - (Zostavax) 00:00:00 External Pneumococcal Vaccine, 2016-04-26 Completed Idris sey Seybold - Polysaccharide 00:00:00 External Influenza Virus 2016-04-26 Completed Octavia Se ybold - Vaccine, age 6 months 00:00:00 Ext ernal and up Shingles SQ 2016-04-26 Completed [facility]avia Seybol d - (Zostavax) 00:00:00 External Pneumococcal Vaccine, 2016-04-26 Completed Idris sey Seybold - Polysaccharide 00:00:00 External Influenza Virus 2016-04-26 Completed Octavia Huang ybold - Vaccine, age 6 months 00:00:00 Ext ernal and up Shingles SQ 2016-04-26 Completed Octavia Huangybol d (Zostavax) 00:00:00 Pneumococcal Vaccine, 2016-04-26 Completed Idris sey Seybold Polysaccharide 00:00:00 Influenza Virus 2016-04-26 Completed Octavia Huang ybold Vaccine, age 6 months 00:00:00 and up Shingles SQ 2016-04-26 Completed Octavia Seybol d (Zostavax) 00:00:00 Pneumococcal Vaccine, 2016-04-26 Completed Idris sey Seybold Polysaccharide 00:00:00 Influenza Virus 2016-04-26 Completed Oct[facility] Se ybold Vaccine, age 6 months 00:00:00 and up Influenza Virus 2016-04-26 Completed [facility] Vaccine Quad IM 00:00:00 [place] [facility] Multi-dose 6+ MO [facility] Pneumococcal 2016-04-26 Completed [facility] f Polysaccharide, 00:00:00 [place] [facility] PPSV23 (PNEUMOVAX) Branch Zoster(Zostavax)(Beatty 2016-04-26 Completed Uni versity of gles) 00:00:00 [facility] Influenza Virus 2016-04-26 Completed [facility]it [facility] of Vaccine Quad IM 00:00:00 [place] [facility] Multi-dose 6+ MO Branch Pneumococcal 2016-04-26 Completed University o f Polysaccharide, 00:00:00 [place] [facility] PPSV23 (PNEUMOVAX) Branch Zoster(Zostavax)(Beatty 2016-04-26 Completed Uni versity of gles) 00:00:00 [facility] Influenza Virus 2016-04-26 Completed [facility]it [facility] of Vaccine Quad IM 00:00:00 [place] [facility] Multi-dose 6+ MO Branch Pneumococcal 2016-04-26 Completed [facility] o f Polysaccharide, 00:00:00 [place] [facility] PPSV23 (PNEUMOVAX) Branch Zoster(Zostavax)(Beatty 2016-04-26 Completed Uni versity of gles) 00:00:00 [facility] Influenza Virus 2014-04-14 Completed Octavia Se ybold Vaccine, age 6 months 00:00:00 and up Tdap- (Boostrix, 2014-04-14 Completed Octavia S eybold Adacel) 00:00:00 Influenza Virus 2014-04-14 Completed Octavia Huang ybold Vaccine, age 6 months 00:00:00 and up Tdap- (Boostrix, 2014-04-14 Completed Octavia S eybold Adacel) 00:00:00 Influenza Virus 2014-04-14 Completed Octavia Huang ybold Vaccine, age 6 months 00:00:00 and up Tdap- (Boostrix, 2014-04-14 Completed Octavia S eybold Adacel) 00:00:00 Influenza Virus 2014-04-14 Completed Octavia Huang ybamber - Vaccine, age 6 months 00:00:00 Ext ernal and up Tdap- (Boostrix, 2014-04-14 Completed Octavia S eybold - Adacel) 00:00:00 External Influenza Virus 2014-04-14 Completed Octavia Huang ybamber - Vaccine, age 6 months 00:00:00 Ext ernal and up Tdap- (Boostrix, 2014-04-14 Completed Octavia S eybold - Adacel) 00:00:00 External Influenza Virus 2014-04-14 Completed Octavia Huang ybamber Vaccine, age 6 months 00:00:00 and up Tdap- (Boostrix, 2014-04-14 Completed Octavia S eybold Adacel) 00:00:00 Influenza Virus 2014-04-14 Completed Octavia burgos Vaccine, age 6 months 00:00:00 and up Tdap- (Boostrix, 2014-04-14 Completed Octavia S eybold Adacel) 00:00:00 Influenza Virus 2014-04-14 Completed [facility]it [facility] of Vaccine Quad IM 00:00:00 [facility] ical Multi-dose 6+ MO Branch TDAP 2014-04-14 Completed [facility] 00:00:00 [facility] Influenza Virus 2014-04-14 Completed [facility]it [facility] of Vaccine Quad IM 00:00:00 [place] [facility] Multi-dose 6+ MO Branch TDAP 2014-04-14 Completed [facility] 00:00:00 [facility] Influenza Virus 2014-04-14 Completed [facility] of Vaccine Quad IM 00:00:00 [place] [facility] Multi-dose 6+ MO Branch TDAP 2014-04-14 Completed [facility] 00:00:00 [facility] Vital Signs Vital Name Observation Time Observation Value Comments Source Systolic blood 2022-07-29 14:21:00 102 mm[Hg] Octavia Seybold - pressure External Diastolic blood 2022-07-29 14:21:00 64 mm[Hg] Kelse y Seybold - pressure External Heart rate 2022-07-29 14:21:00 89 /min Octavia S eybold - External Body temperature 2022-07-29 14:21:00 35.94 Cheri Cecilia ey Seybold - External Respiratory rate 2022-07-29 14:21:00 17 /min Cecilia ey Seybold - External Body height 2022-07-29 14:21:00 165.1 cm Octavia S eybold - External Body weight 2022-07-29 14:21:00 49.896 kg Octavia S eybold - External BMI 2022-07-29 14:21:00 18.30 kg/m2 Octavia S eybold - External Oxygen saturation in 2022-07-29 14:21:00 99 /min Octavia Huangybold - Arterial blood by External Pulse oximetry Systolic blood 2021-12-03 20:45:00 100 mm[Hg] Octavia Seybold pressure Diastolic blood 2021-12-03 20:45:00 60 mm[Hg] Kelse y Seybold pressure Heart rate 2021-12-03 20:45:00 79 /min Octavia S eybold Body temperature 2021-12-03 20:45:00 37 Cheri Cecilia ey Seybold Respiratory rate 2021-12-03 20:45:00 16 /min Cecilia ey Seybold Body height 2021-12-03 20:45:00 167.6 cm Octavia S eybold Body weight 2021-12-03 20:45:00 52.164 kg Octavia S eybold BMI 2021-12-03 20:45:00 18.56 kg/m2 Octavia S eybold Systolic blood 2021-11-16 15:55:00 98 mm[Hg] Octavia Seybold pressure Diastolic blood 2021-11-16 15:55:00 63 mm[Hg] Kelse y Seybold pressure Heart rate 2021-11-16 15:55:00 79 /min Octavia S eybold Body temperature 2021-11-16 15:55:00 36.44 Cheri Cecilia ey Seybold Respiratory rate 2021-11-16 15:55:00 14 /min Cecilia ey Seybold Body height 2021-11-16 15:55:00 168.7 cm Octavia richmondbomarialuisa Body weight 2021-11-16 15:55:00 50.894 kg Octavia richmondbomarialuisa BMI 2021-11-16 15:55:00 17.88 kg/m2 Octavia De La Cruz eybold Systolic blood 2021-11-02 15:46:00 97 mm[Hg] Octavia Seybold pressure Diastolic blood 2021-11-02 15:46:00 58 mm[Hg] Kelse y Seybold pressure Heart rate 2021-11-02 15:46:00 79 /min Octavia richmondbomarialuisa Body temperature 2021-11-02 15:46:00 36.5 Cheri Cecilia ey Seybold Respiratory rate 2021-11-02 15:46:00 18 /min Cecilia richmond Seybamber Body weight 2021-11-02 15:46:00 51.982 kg Octavia richmondbomarialuisa BMI 2021-11-02 15:46:00 18.27 kg/m2 Octavia richmondbomarialuisa Procedures Procedure Date / Time Performed Performing Clinician [facility] e SARS-COV-2 COVID-19 2021-05-24 21:34:05 [facility] [place] V[facility]INE Name Medical Branch BOOSTER,0.25ML,IM (MODERNA) Encounters Start End Encounter Admission Attending Care Care Encounter Source Date/Time Date/Time Type Type Clinicians Facility Department ID 2023-02-20 2023-02-20 Outpatient OCTAVIA CHAMBERS [id number] [place] 11:00:00 11:00:00 SUSAN Seybo ld 2023-02-14 2023-02-14 Outpatient OCTAVIA BURGER [id number] [place] 11:00:00 11:00:00 MONTEZ Rendonol shannon 2023-01-09 2023-01-09 Outpatient OCTAVIA DOE [id number] [place] 13:20:00 13:20:00 TITO Rendonol shannon 2023-01-08 2023-01-08 Outpatient OCTAVIA DOE [id number] [place] 13:20:00 13:20:00 TITO Seybol d 2023-01-03 2023-01-03 Outpatient LEGENDREOCTAVIA [id number] [place] 11:15:00 11:15:00 DARLINE Seybo ld 2022-12-05 2022-12-05 Outpatient OCTAVIA LINARES [id number] [place] 10:40:00 10:40:00 PA Seybol d 2022-11-18 2022-11-18 Outpatient OCTAVIA LINARES [id number] [place] 00:00:00 00:00:00 PA Seybol d 2022-11-07 2022-11-07 Outpatient OCTAVIA ORTIZ [id number] [place] 13:20:00 13:20:00 RAFAT Seybol d 2022-11-04 2022-11-04 Outpatient OCTAVIA CHAMBERS [id number] [place] 00:00:00 00:00:00 SUSAN Seybo ld 2022-10-31 2022-10-31 Outpatient OCTAVIA CHAMBERS [id number] [place] 00:00:00 00:00:00 SUSAN Seybo ld 2022-10-23 2022-10-23 Outpatient OCTAVIA CHAMBERS [id number] [place] 00:00:00 00:00:00 SUSAN Seybo ld 2022-09-26 2022-09-26 Outpatient OCTAVIA ORTIZ [id number] [place] 14:00:00 14:00:00 RAFAT Seybol d 2022-08-05 2022-08-05 Outpatient OCTAVIA WYATT [id number] [place] 00:00:00 00:00:00 KELI Seybol d 2022 2022 Outpatient OCTAVIA WYATT [id number] [place] 00:00:00 00:00:00 KELI Seybol d 2022-07-29 2022-07-29 Outpatient OCTAVIA WYATT [id number] [place] 08:30:00 08:30:00 KELI Seybol d 2022-07-25 2022-07-25 Outpatient OCTAVIA CHAMBERS [id number] [place] 10:40:00 10:40:00 SUSAN Seybo ld 2022-07-11 2022-07-11 Outpatient DALJIT OCTAVIA PETE [id number] [place] 00:00:00 00:00:00 PA Seybol d 2022-04-11 2022-04-11 Outpatient OCTAVIA LOVE [id number] [place] 09:30:00 09:30:00 JAYNE Seybo ld 2022-03-25 2022-03-25 Office Montez Kemal JAYNE [id number] [place] 15:15:00 15:45:00 Visit [id number] Se ybold [id number] 2022-02-28 2022-02-28 Outpatient OCTAVIA RAMSEY [id number] [place] 00:00:00 00:00:00 HUMAIRA Seybol d 2022-02-09 2022-02-09 [facility] WINNIE Guerra [id number] [place] 11:45:00 11:45:00 ne Gisselle PLASCENCIA [id number] Se ybold [id number] 2022-01-11 2022-01-11 [facility] SantaRigo [id number] [facility] 10:15:00 10:44:14 ne Chery Arellano [facility] [id number] Se ybold [id number] 2021-12-26 2021-12-26 Outpatient OCTAVIA RAMSEY [id number] [place] 00:00:00 00:00:00 HUMAIRA Seybol d 2021-12-24 2021-12-24 Outpatient OCTAVIA PETE [id number] [place] 13:30:00 13:30:00 Seybol d 2021-12-07 2021-12-07 Outpatient LAB47 OCTAVIA PETE [id number] [place] 11:00:00 11:00:00 Seybol d 2021-12-03 2021-12-03 Office Jose Ramsey [id number] [place] 15:45:00 16:30:00 Visit Humaira Barry [id number] Se ybold Somogyi [id number] 2021-11-16 2021-11-16 Outpatient [id number] OCTAVIA PETE [id number] [place] 11:30:00 11:30:00 Seybol d 2021-11-16 2021-11-16 Office [place] Padron [id number] [facility] 11:00:00 11:15:00 Visit Darline Storey [id number] Seybold [id number] 2021-11-02 2021-11-02 Outpatient [id number] OCTAVIA PETE [id number] [place] 11:35:00 11:35:00 Seybol d 2021-11-02 2021-11-02 Office [place] [id number] [facility] 10:30:00 10:45:00 Visit Darline Storey [id number] Seybold [id number] 2021-08-06 2021-08-06 [facility] JAYNE Arana [id number] [place] 14:30:00 14:57:50 tanya Garsia [id number] Se ybold [id number] 2021-08-06 2021-08-06 Outpatient OCTAVIA LINARES [id number] [place] 00:00:00 00:00:00 PA Seybol d 2021-08-03 2021-08-03 Outpatient OCTAVIA LINARES [id number] [place] 00:00:00 00:00:00 PA Seybol d 2021-07-27 2021-07-27 Outpatient OCTAVIA DOE [id number] [place] 00:00:00 00:00:00 TITO Seybol d 2021-07-20 2021-07-20 Outpatient OCTAVIA PETE [id number] [place] 10:00:00 10:00:00 Seybol d 2021-06-28 2021-06-28 Office DIA DOE JUAREZ [id number] [place] 13:20:00 13:20:[address] [facility] [id number] ybold DIAGNOSTI [id number] [facility] [id number] 2021-06-28 2021-06-28 Outpatient OCTAVIA AVILA [id number] [place] 00:00:00 00:00:00 SAMIR Justiceo ld 2021-06-14 2021-06-14 Outpatient OCTAVIA LINARES [id number] [place] 00:00:00 00:00:00 PA Seybol d 2021-06-06 2021-06-06 Outpatient OCTAVIA LINARES [id number] [place] 14:15:00 14:15:00 PA Seybol d 2021-05-24 2021-05-24 Outpatient Bk SANTIAGO [facility] [id number] Univers 15:40:00 15:15:42 JEFF tang [facility] 2021-05-24 2021-05-24 Imm/Inj Nurse, Adc Pob Immunization [facility] [id number] Univers 15:14:53 15:15:42 Visit Jeff Santiago [place] [id number] [facility] [id number] [facility] [id number] [address] 2021-05-24 2021-05-24 Outpatient OCTAVIA LINARES [id number] [place] 00:00:00 00:00:00 PA Seybol d 2021-05-24 2021-05-24 Outpatient OCTAVIA LINARES [id number] [place] 00:00:00 00:00:00 PA Seybol d 2021-04-13 2021-04-13 Outpatient [id number] OCTAVIA PETE [id number] [place] 11:15:00 11:15:00 Seybol d 2020-09-18 2020-09-18 Patient Jeremiah [facility] [id number] Univers 00:00:00 00:00:00 Outreach Jeff PRIMARY [id number] i ty of [facility] [id number] [id number] [place] [address] 2020-06-15 2020-06-15 [facility] Ric Gracia [facility] [id number] Univers 10:00:00 23:59:[address] [id number] ity [facility] [id number] [id number] [facility] [address] Branch 2020-06-15 2020-06-15 Outpatient RIC VERA [facility] [id number] Univers 00:00:00 00:00:00 ity [facility] 2020-05-22 2020-05-22 Outpatient RIC VERA [facility] [id number] Univers 09:30:00 09:30:00 ity [facility] Results This patient has no known results.
--- NOTE | 2022-11-18 09:57 | RAD REPORT ---
EXAM DESCRIPTION: RAD - Chest Single View - 11/18/2022 9:51 am CLINICAL HISTORY: COUGH Chest pain. COMPARISON: No comparisons FINDINGS: Portable technique limits examination quality. The lungs are emphysematous but grossly clear. The heart is normal in size. No displaced fractures. IMPRESSION: No acute intrathoracic process suspected.
[2022-11-18 09:58] LABS: Absolute Lymphocytes (CBC) 0.6 K/uL (0.7-4.9); Hematocrit 43.3 % (36.0-45.0); Lymphocytes % 5.1 % (15.3-44.8); MCV 91.7 fL (80-100); MPV 8.8 fL (7.6-11.3); RBC Red Blood Cell Count 4.72 M/uL (3.86-4.86)
[2022-11-18 10:00] LABS: Protime INR 0.99
[2022-11-18] MEDS ORDERED: NA CHLORIDE 0.9% 1,000 ML ONE (10:01)
[2022-11-18 10:15] LABS: Albumin 3.7 g/dL (3.4-5.0); Bilirubin Direct 0.1 mg/dL (0-0.2); Bilirubin Total 0.5 mg/dL (0.2-1.0); Magnesium 2.1 mg/dL (1.6-2.4); Potassium 3.3 mEq/L (3.5-5.1); Protein, Total 7.2 g/dL (6.4-8.2); Troponin High Sensitivity 4.2 pg/mL (<58.9)
[2022-11-18] MEDS ORDERED: METHYLPREDNISOLONE 125 MG INJ ONE (10:59)
[2022-11-18] MEDS ORDERED: AZITHROMYCIN 250 MG TAB ONE (11:00)
[2022-11-18] MEDS ORDERED: LEVALBUTEROL 1.25 MG/3 ML NEB ONE (11:00)
[2022-11-18] MEDS ORDERED: predniSONE 20 MG TAB ONE (11:00)
[2022-11-18] MEDS ORDERED: FAMOTIDINE 20 MG/2 ML VIAL IV ONE (11:00)
[2022-11-18] MEDS ORDERED: POTASSIUM 25 MEQ EFFERV TAB ONE (11:00)
[2022-11-18 11:33] LABS: Specific Gravity 1.028 (1.005-1.030); Urine Bacteria None Seen /HPF (<20); Urine Bilirubin NEGATIVE (Negative); Urine Blood Negative (Negative); Urine Clarity Clear (Clear); Urine Color Light-Yellow (Yellow); Urine Glucose NEGATIVE (Negative); Urine Mucus 1+ /HPF (None Seen); Urine Protein TRACE (Negative); Urine RBC <5 /HPF (None Seen); Urine Urobilinogen Normal (Normal); Urine pH 6.5 (5.0-7.0)
--- NOTE | 2022-11-18 11:38 | EDPHYS ---
Physician Documentation [facility] Name: Carmenza Pacheco Age: 67 yrs Sex: Female : 1955 Arrival Date: 11/18/2022 Time: 09:04 Bed 14 Private MD: ED Physician Kunal Leigh HPI: 11/18 10:07 This 67 yrs old Female presents to ER via Ambulatory with complaints of sury Shortness Of Breath. 10:07 The patient has shortness of breath at rest, with light activity. Onset: The sury symptoms/episode began/occurred 2 day(s) ago. Duration: The symptoms are continuous, but are steadily getting better. The patient's shortness of breath has no apparent modifying factors. Associated signs and symptoms: Pertinent positives: non-productive cough, Pertinent negatives: chest pain. Severity of symptoms: At their worst the symptoms were mild in the emergency department the symptoms are unchanged. The patient has not experienced similar symptoms in the past. Historical: - Allergies: 09:26 PENICILLINS; ap3 - Home Meds: 09:26 Albuterol Inhl [Active]; ap3 - PMHx: 09:26 Asthma; ap3 - Immunization history:: Client reports receiving the 2nd dose of the Covid vaccine. - Social history:: Smoking status: Patient denies any tobacco usage or history of. ROS: 10:12 Constitutional: Negative for fever, chills, and weight loss, Eyes: Negative for injury, sury pain, redness, and discharge, ENT: Negative for injury, pain, and discharge, Neck: Negative for injury, pain, and swelling, Cardiovascular: Negative for chest pain, palpitations, and edema, Abdomen/GI: Negative for abdominal pain, nausea, vomiting, diarrhea, and constipation, Back: Negative for injury and pain, : Negative for injury, bleeding, discharge, and swelling, MS/Extremity: Negative for injury and deformity, Skin: Negative for injury, rash, and discoloration, Neuro: Negative for headache, weakness, numbness, tingling, and seizure, Psych: Negative for depression, anxiety, suicide ideation, homicidal ideation, and hallucinations, Allergy/Immunology: Negative for hives, rash, and allergies, Endocrine: Negative for neck swelling, polydipsia, polyuria, polyphagia, and marked weight changes, Hematologic/Lymphatic: Negative for swollen nodes, abnormal bleeding, and unusual bruising. 10:12 Respiratory: Positive for cough. Exam: 10:12 Constitutional: This is a well developed, well nourished patient who is awake, alert, sury and in no acute distress. Head/Face: Normocephalic, atraumatic. Eyes: Pupils equal round and reactive to light, extra-ocular motions intact. Lids and lashes normal. Conjunctiva and sclera are non-icteric and not injected. Cornea within normal limits. Periorbital areas with no swelling, redness, or edema. ENT: Nares patent. No nasal discharge, no septal abnormalities noted. Tympanic membranes are normal and external auditory canals are clear. Oropharynx with no redness, swelling, or masses, exudates, or evidence of obstruction, uvula midline. Mucous membranes moist. Neck: Trachea midline, no thyromegaly or masses palpated, and no cervical lymphadenopathy. Supple, full range of motion without nuchal rigidity, or vertebral point tenderness. No Meningismus. Chest/axilla: Normal chest wall appearance and motion. Nontender with no deformity. No lesions are appreciated. Cardiovascular: Regular rate and rhythm with a normal S1 and S2. No gallops, murmurs, or rubs. Normal PMI, no JVD. No pulse deficits. Abdomen/GI: Soft, non-tender, with normal bowel sounds. No distension or tympany. No guarding or rebound. No evidence of tenderness throughout. Back: No spinal tenderness. No costovertebral tenderness. Full range of motion. Female : Normal external genitalia. Skin: Warm, dry with normal turgor. Normal color with no rashes, no lesions, and no evidence of cellulitis. MS/ Extremity: Pulses equal, no cyanosis. Neurovascular intact. Full, normal range of motion. Neuro: Awake and alert, GCS 15, oriented to person, place, time, and situation. Cranial nerves II-XII grossly intact. Motor strength 5/5 in all extremities. Sensory grossly intact. Cerebellar exam normal. Normal gait. Psych: Awake, alert, with orientation to person, place and time. Behavior, mood, and affect are within normal limits. 10:12 Respiratory: mild respiratory distress is noted, Respirations: normal, no acute changes, is not noted, Breath sounds: no acute changes, throughout, wheezing: expiratory 10:17 ECG was reviewed by the Attending Physician. [facility] Vital Signs: 09:23 BP 113 / 57; Pulse 109; Resp 19; Temp 98.8; Pulse Ox 86% on R/A; Weight 52.16 kg; ap3 Height 5 ft. 5 in. ; 09:27 Pulse Ox 97% on 2 lpm NC; ap3 09:57 BP 112 / 70; Pulse 102; Resp 16 S; Pulse Ox 95% on 2 lpm NC; kc6 10:05 BP 112 / 70; Pulse 87; Resp 16; Pulse Ox 96% on 2 lpm NC; Pain 0/10; ld1 11:09 BP 110 / 58; Pulse 85; Resp 17; Pulse Ox 100% on Nebulizer Mask; Pain 0/10; ld1 11:55 BP 110 / 58; Pulse 107; Resp 23; Pulse Ox 96% on R/A; ld1 09:23 Body Mass Index 19.14 (52.16 kg, 165.1 cm) ap3 10:05 Pain Scale: Adult ld1 11:09 Pain Scale: Adult ld1 MDM: 09:15 Patient medically screened. [facility] 10:13 Differential diagnosis: Bronchitis CHF exacerbation, Chronic Obstructive Pulmonary sury Disease Myocardial Infarction pneumonia, pulmonary edema, reactive airway disease, Sepsis Unstable Angina. Antibiotic administration: The patient is discharged and will get outpatient antibiotics, Zithromax. Immunization status: Pneumococcal vaccine: within last 5 years. Influenza vaccine: within last 5 years. Data reviewed: vital signs, nurses notes, lab test result(s), EKG, radiologic studies, plain films. Consideration of Admission/Observation Escalation of care including admission/observation considered. I considered the following discharge prescriptions or medication management in the emergency department Medications were administered in the Emergency Department. See MAR. Test considered but Not performed: CT: no ct chest. Care significantly affected by the following chronic conditions: Chronic Obstructive Pulmonary Disease. Counseling: I had a detailed discussion with the patient and/or guardian regarding: the historical points, exam findings, and any diagnostic results supporting the discharge/admit diagnosis, lab results, radiology results, the need for outpatient follow up, for definitive care, a family practitioner, a case making machine operator. 11/18 09:16 Order name: Basic Metabolic Panel; Complete Time: 10:18 [facility] 11/18 09:16 Order name: CBC with Diff; Complete Time: 10:18 [facility] 11/18 09:16 Order name: LFT's; Complete Time: 10:18 [facility] 11/18 09:16 Order name: Magnesium; Complete Time: 10:18 [facility] 11/18 09:16 Order name: NT PRO-BNP; Complete Time: 10:18 [facility] 11/18 09:16 Order name: PT-INR; Complete Time: 10:18 [facility] 11/18 09:16 Order name: Troponin HS; Complete Time: 10:18 [facility] 11/18 09:16 Order name: Blood Culture Adult (2) 11/18 09:16 Order name: Lactate w/ 2H reflex if indic.; Complete Time: 10:18 [facility] 11/18 09:16 Order name: Urinalysis w/ reflexes; Complete Time: 11:37 [facility] 11/18 09:16 Order name: Lipase; Complete Time: 10:18 [facility] 11/18 09:16 Order name: XRAY Chest (1 view); Complete Time: 10:18 [facility] 11/18 09:16 Order name: EKG; Complete Time: 09:17 [facility] 11/18 09:16 Order name: Cardiac monitoring; Complete Time: 09:52 [facility] 11/18 09:16 Order name: EKG - Nurse/Tech; Complete Time: 09:52 [facility] 11/18 09:16 Order name: IV Saline Lock; Complete Time: 09:46 [facility] 11/18 09:16 Order name: Labs collected and sent; Complete Time: 09:46 [facility] 11/18 09:16 Order name: O2 Per Protocol; Complete Time: 09:28 [facility] 11/18 09:16 Order name: O2 Sat Monitoring; Complete Time: 09:28 [facility] EC:17 Rate is 81 beats/min. Rhythm is regular. QRS Guild is Normal. DE interval is normal. QRS sury interval is normal. QT interval is normal. No Q waves. T waves are Normal. No ST changes noted. Clinical impression: NSR w/ Non-specific ST/T Changes and No evidence of ischemia. Interpreted by me. Reviewed by me. Administered Medications: : Drug: Levalbuterol Inhalation 2.5 mg Route: Inhalation; Drug: NS 0.9% IV 1000 ml Route: IV; Rate: 125 ml/hr; Site: right antecubital; ld1 : Drug: MethylPrednisoLONE IVP 2 mg/kg Route: IVP; Site: right antecubital; ld1 11:08 Drug: predniSONE PO 40 mg Route: PO; ld1 11:08 Drug: Levalbuterol Inhalation 3.75 mg Route: Inhalation; ld1 11:08 Drug: Ipratropium Inhalation Aerosol 0.5 mg Route: Inhalation; ld1 11:08 Drug: Famotidine IVP 20 mg Route: IVP; Site: right antecubital; ld1 11:08 Drug: AZITHromycin PO 500 mg Route: PO; ld1 11:08 Drug: Potassium PO Effervescent Tablet 25 mEq Route: PO; ld1 11:55 Drug: Levalbuterol Inhalation 1.25 mg Route: Inhalation; ld1 Disposition Summary: 11/18/22 11:37 Discharge Ordered Location: Home sury Problem: new sury Symptoms: have improved sury Condition: Stable sury Diagnosis - COPD/ Chronic obstructive pulmonary disease with (acute) exacerbation sury - Hypoxemia sury - Moderate persistent asthma sury - Hypokalemia sury Followup: sury - With: Private Physician - When: 2 - 3 days - Reason: Recheck today's complaints, Continuance of care, Re-evaluation by your physician Followup: sury - With: - When: 2 - 3 days - Reason: Recheck today's complaints, Re-evaluation by your physician Discharge Instructions: - Discharge Summary Sheet sury - Asthma, Adult sury - Chronic Bronchitis, Adult sury - Chronic Obstructive Pulmonary Disease sury - Chronic Obstructive Pulmonary Disease Exacerbation sury - Chronic Obstructive Pulmonary Disease, [id number] sury - Hypoxemia sury - Cough, Adult, [id number] sury - Chronic Obstructive Pulmonary Disease Exacerbation, [id number] sury Forms: - Medication Reconciliation Form sury - Thank You Letter sury - Antibiotic Education sury - Prescription Opioid Use sury Prescriptions: - albuterol sulfate 90 mcg/actuation Inhalation HFA Aerosol Inhaler - inhale 2 puff by INHALATION route every 4-6 hours; 1 unit; Refills: 0, Product sury Selection Permitted - Albuterol Sulfate 2.5 mg /3 mL (0.083 %) Inhalation Solution for Nebulization - inhale 1 unit by NEBULIZATION route every 4-6 hours As needed; 25 unit; sury Refills: 0, Product Selection Permitted - Zithromax Z-Ksah 250 mg Oral Tablet - take 1 tablet by ORAL route as directed for 5 days Day 1 - take two (2) tablets sury one time. Day 2, 3, 4 , 5 take one (1) tablet once daily.; 6 tablet; Refills: 0, Product Selection Permitted - Prednisone 20 mg Oral Tablet - take 2 tablets by ORAL route once daily for 5 days; 10 tablet; Refills: 0, sury Product Selection Permitted Signatures: Dispatcher [employer] Kunal Garner MD MD cha Prokisch, Amanda RN RN ap3 Juanis Dominguez RN RN ld1
--- NOTE | 2022-11-18 11:38 | ER ---
Nurse's Notes [facility] Name: Carmenza Pacheco Age: 67 yrs Sex: Female : 1955 Arrival Date: 11/18/2022 Time: 09:04 Bed 14 Private MD: Diagnosis: COPD/ Chronic obstructive pulmonary disease with (acute) exacerbation;Hypoxemia;Moderate persistent asthma;Hypokalemia Presentation: 11/18 09:23 Chief complaint: Patient states: she has been having cough and congestion since ap3 Friday11/16/2022. she reports that her home pulse oximeter was reading 84% PRIMARY SPECIAL EDUCATOR. Coronavirus screen: Client presents with at least one sign or symptom that may indicate coronavirus-19. Ebola Screen: No symptoms or risks identified at this time. Initial Sepsis Screen: Does the patient meet any 2 criteria? HR > 90 bpm. Does the patient have a suspected source of infection? No. Patient's initial sepsis screen is negative. Risk Assessment: Do you want to hurt yourself or someone else? Patient reports no desire to harm self or others. Onset of symptoms was November 16, 2022. 09:23 Method Of Arrival: Ambulatory ap3 09:23 Acuity: ALEXUS 3 ap3 Triage Assessment: : General: Appears in no apparent distress. Behavior is calm, cooperative, appropriate ap3 for age. Pain: Denies pain. Neuro: Level of Consciousness is awake, alert, obeys commands, Oriented to person, place, time, situation. Cardiovascular: Patient's skin is warm and dry. Respiratory: Reports shortness of breath cough that is Onset: The symptoms/episode began/occurred gradually, the patient has moderate shortness of breath. Historical: - Allergies: 09:26 PENICILLINS; ap3 - Home Meds: 09: Albuterol Inhl [Active]; ap3 - PMHx: 09:26 Asthma; ap3 - Immunization history:: Client reports receiving the 2nd dose of the Covid vaccine. - Social history:: Smoking status: Patient denies any tobacco usage or history of. Screenin: [facility] ED Fall Risk Assessment (Adult) History of falling in the last 3 months, ap3 including since admission No falls in past 3 months (0 pts). Abuse screen: Denies threats or abuse. Nutritional screening: No deficits noted. Tuberculosis screening: No symptoms or risk factors identified. Assessment: 09:27 Respiratory: Airway is patent Respiratory effort is even, unlabored. ap3 10:05 General: Appears in no apparent distress. comfortable, Behavior is calm, cooperative, ld1 appropriate for age. Pain: Denies pain. Neuro: Level of Consciousness is awake, alert, obeys commands, Oriented to person, place, time, situation. Cardiovascular: Capillary refill < 3 seconds Patient's skin is warm and dry. Rhythm is sinus rhythm. Respiratory: Airway is patent Respiratory effort is even, unlabored, Breath sounds are clear bilaterally. GI: Abdomen is flat, non-distended. : No signs and/or symptoms were reported regarding the genitourinary system. EENT: No signs and/or symptoms were reported regarding the EENT system. Derm: No signs and/or symptoms reported regarding the dermatologic system. Musculoskeletal: No signs and/or symptoms reported regarding the musculoskeletal system. 11:55 Reassessment: Patient appears in no apparent distress at this time. No changes from ld1 previously documented assessment. Patient and/or family updated on plan of care and expected duration. Pain level reassessed. Patient is alert, oriented x 3, equal unlabored respirations, skin warm/dry/pink. Patient states symptoms have improved. Vital Signs: 09:23 BP 113 / 57; Pulse 109; Resp 19; Temp 98.8; Pulse Ox 86% on R/A; Weight 52.16 kg; ap3 Height 5 ft. 5 in. ; 09:27 Pulse Ox 97% on 2 lpm NC; ap3 09:57 BP 112 / 70; Pulse 102; Resp 16 S; Pulse Ox 95% on 2 lpm NC; kc6 10:05 BP 112 / 70; Pulse 87; Resp 16; Pulse Ox 96% on 2 lpm NC; Pain 0/10; ld1 11:09 BP 110 / 58; Pulse 85; Resp 17; Pulse Ox 100% on Nebulizer Mask; Pain 0/10; ld1 11:55 BP 110 / 58; Pulse 107; Resp 23; Pulse Ox 96% on R/A; ld1 09:23 Body Mass Index 19.14 (52.16 kg, 165.1 cm) ap3 10:05 Pain Scale: Adult ld1 11:09 Pain Scale: Adult ld1 ED Course: 09:09 Patient arrived in ED. am2 09:15 Kunal Leigh MD is Attending Physician. [facility] 09:26 Triage completed. ap3 09:27 Arm band placed on right wrist. ap3 09:27 Patient has correct armband on for positive identification. Bed in low position. Call ap3 light in reach. Side rails up X 1. Adult w/ patient. 09:43 Initial lab(s) drawn, by me, sent to lab. Inserted saline lock: 20 gauge in right aa5 antecubital area, using aseptic technique. Blood collected. 09:43 First set of blood cultures drawn by me. aa5 09:52 XRAY Chest (1 view) In Process Unspecified. EDMS 10:05 Juanis Dominguez, ELENA is Primary Nurse. ld1 11:08 Urinalysis w/ reflexes Sent. ld1 11:08 Inserted saline lock: 20 gauge in left antecubital area, using aseptic technique. Blood ld1 collected. 11:37 Cholo Marquez MD is Referral Physician. sury Administered Medications: 11:03 Drug: Levalbuterol Inhalation 2.5 mg Route: Inhalation; ld1 11:08 Drug: NS 0.9% IV 1000 ml Route: IV; Rate: 125 ml/hr; Site: right antecubital; ld1 11:08 Drug: MethylPrednisoLONE IVP 2 mg/kg Route: IVP; Site: right antecubital; ld1 11:08 Drug: predniSONE PO 40 mg Route: PO; ld1 11:08 Drug: Levalbuterol Inhalation 3.75 mg Route: Inhalation; ld1 11:08 Drug: Ipratropium Inhalation Aerosol 0.5 mg Route: Inhalation; ld1 11:08 Drug: Famotidine IVP 20 mg Route: IVP; Site: right antecubital; ld1 11:08 Drug: AZITHromycin PO 500 mg Route: PO; ld1 11:08 Drug: Potassium PO Effervescent Tablet 25 mEq Route: PO; ld1 11:55 Drug: Levalbuterol Inhalation 1.25 mg Route: Inhalation; ld1 Outcome: 11:37 Discharge ordered by . [facility] 12:36 Patient left the ED. mb9 Signatures: Dispatcher [employer] EDMS Kunal Leigh MD MD cha Calderon, Audri RN RN aa5 Taylor Floyd am2 Taylor Adams RN RN ap3 Juanis Dominguez, RN RN ld1 Gi Kwok, RN RN kc6 Daysi Ayala, RN RN mb9
[2022-11-18 13:03] VITALS: TEMP 98.8
[2022-11-18 13:08] VITALS: BP 110/58
[2022-11-18 13:10] VITALS: O2SAT 96
--- NOTE | 2022-11-19 07:54 | EKG ---
Test Date: 2022-11-18 Test Time: 09:50:16 Poacher Wringer Operator: NEERU MEASUREMENT RESULTS: Intervals: Rate: 91 KS: 136 QRSD: 98 QT: 342 QTc: 420 [place]: P: 103 KS: 136 QRS: 65 T: 104 INTERPRETIVE STATEMENTS: Normal sinus rhythm Nonspecific ST and T wave abnormality Abnormal ECG No previous ECG available for comparison Electronically Signed On 11-19-22 07:52:44 CDT by Ibrahima Diamond
== END 2022-11-18 12:36 | disposition home or self-care (01) ==
LOC: ER 09:04
DX: J44.1 Chronic obstructive pulmonary disease with (acute) exacerbation (principal); R09.02 Hypoxemia; E87.6 Hypokalemia; J45.40 Moderate persistent asthma, uncomplicated; Z88.0 Allergy status to penicillin
CPT/HCPCS: 93005; 87040 ×2; 85025; 81001; 80048; 36415; 83735; 85610; 80076; 83605; 84484; 83690; 83880; 71045; 96375; 96374; 99285; J7512; J7614; J2930; J7030